=== PATIENT | female | born 1980 | race Caucasian/White ===

== ENCOUNTER 2022-10-13 13:45 | Outpatient (CLI) | payer OTHER, SELFPAY ==
--- NOTE | 2022-10-13 14:00 | CRLHL7_ITS ---
For Patients: As a result of the Century Cures Act, medical imaging exams and procedure reports are released immediately into your electronic medical record. You may view this report before your referring provider. If you have questions, please contact your health care provider. BILATERAL SCREENING MAMMOGRAM WITH COMPUTER-AIDED DETECTION AND TOMOSYNTHESIS TECHNIQUE: CC and MLO views were obtained. These mammographic images have been obtained using full-field digital technique. These mammographic images were interpreted with the benefit of computer-aided detection. Breast Tomosynthesis was used in this interpretation. COMPARISON FILM: Baseline. FINDINGS: The breasts are heterogeneously dense, which may obscure small masses IMPRESSION: There is no radiographic evidence for malignancy. ASSESSMENT: BI-RADS Category 1: Negative RECOMMENDATION: Routine screening mammogram in 1 year. A lay language report of this examination will be provided to the patient. José Lyon M.D. Diagnostic Radiologist [email or web address] JAVID/Dictated by: José Lyon MD @ 10/14/2022 11:14:00 AM (Electronically Signed)
== END 2022-10-13 13:46 | disposition home or self-care (01) ==
LOC: MAMMO 13:53
PROVIDERS: PCP Advanced Practice Midwife; Visit Provider Advanced Practice Midwife
DX: Z12.31 Encounter for screening mammogram for malignant neoplasm of breast (principal); R92.2 Inconclusive mammogram
CPT/HCPCS: 77063; 77067

== ENCOUNTER 2023-08-14 11:40 | Outpatient (CLI) | payer OTHER, SELFPAY | END 2023-08-14 11:41 | disposition home or self-care (01) | LOC: NFLDREF 08-18 05:44 | PROVIDERS: PCP Advanced Practice Midwife; Referring Provider Advanced Practice Midwife; Visit Provider Registered Nurse | DX: N92.0 Excessive and frequent menstruation with regular cycle (principal) | CPT/HCPCS: 84443 ==

== ENCOUNTER 2023-08-22 15:48 | Outpatient (CLI) | payer OTHER, SELFPAY ==
--- NOTE | 2023-08-22 16:00 | CRLHL7_ITS ---
For Patients: As a result of the Century Cures Act, medical imaging exams and procedure reports are released immediately into your electronic medical record. You may view this report before your referring provider. If you have questions, please contact your health care provider. INDICATION: Excessive and frequent menstruation COMPARISON: none TECHNIQUE: 2D campbell scale and color Doppler images were acquired of the pelvis using a transabdominal and transvaginal approach. FINDINGS: Sonographic images demonstrate a normal size and smooth outer contour of the uterus. Uterus measures 7.9 cm in length by 4.0 cm in AP diameter by 5.7 cm in transverse dimension. The myometrium has a normal uniform echotexture. The endometrial lining appears thickened and heterogeneous and measures 18 mm in composite thickness. The right ovary measures 2.9 x 2.1 x 2.0 cm in size and the left ovary measures 3.8 x 1.6 x 1.4 cm. The ovaries demonstrate normal arterial and venous blood flow on color Doppler analysis. There are no suspicious fluid collections within the cul-de-sac. Hypoechoic right ovarian cyst is noted measuring 1.9 cm. Increased vascularity noted within the pelvis bilaterally. IMPRESSION: Heterogeneously thickened endometrium measuring 18 millimeters. No endometrial fluid or uterine fibroid. Bilateral pelvic congestion may be present. Dictated by José Lyon MD @ 08/23/2023 9:46:32 AM (Electronically Signed)
== END 2023-08-22 15:49 | disposition home or self-care (01) ==
LOC: US 15:48
PROVIDERS: PCP Advanced Practice Midwife; Visit Provider Registered Nurse
DX: N92.0 Excessive and frequent menstruation with regular cycle (principal); R93.89 Abnormal findings on diagnostic imaging of other specified body structures
CPT/HCPCS: 76830; 76856

== ENCOUNTER 2023-11-20 14:32 | Outpatient (CLI) | payer OTHER, SELFPAY ==
--- NOTE | 2023-11-20 14:40 | CRLHL7_ITS ---
For Patients: As a result of the Century Cures Act, medical imaging exams and procedure reports are released immediately into your electronic medical record. You may view this report before your referring provider. If you have questions, please contact your health care provider. BILATERAL SCREENING MAMMOGRAM WITH COMPUTER-AIDED DETECTION AND TOMOSYNTHESIS TECHNIQUE: CC and MLO views were obtained. These mammographic images have been obtained using full-field digital technique. These mammographic images were interpreted with the benefit of computer-aided detection. Breast Tomosynthesis was used in this interpretation. COMPARISON FILM: 10/13/22. FINDINGS: The breasts are heterogeneously dense, which may obscure small masses IMPRESSION: There is no radiographic evidence for malignancy. ASSESSMENT: BI-RADS Category 1: Negative RECOMMENDATION: Routine screening mammogram in 1 year. A lay language report of this examination will be provided to the patient. José Lyon M.D. Diagnostic Radiologist [email or web address] JAVID/Dictated by: José Lyon MD @ 11/21/2023 9:22:00 AM (Electronically Signed)
== END 2023-11-20 14:33 | disposition home or self-care (01) ==
LOC: MAMMO 14:32
PROVIDERS: PCP Advanced Practice Midwife; Visit Provider Registered Nurse
DX: Z12.31 Encounter for screening mammogram for malignant neoplasm of breast (principal); R92.2 Inconclusive mammogram
CPT/HCPCS: 77063; 77067

== ENCOUNTER 2024-12-18 10:39 | Outpatient (CLI) | payer OTHER, SELFPAY | END 2024-12-18 10:40 | disposition home or self-care (01) | LOC: NFLDREF 15:18 | PROVIDERS: PCP Advanced Practice Midwife; Referring Provider Advanced Practice Midwife; Visit Provider Registered Nurse | DX: N39.0 Urinary tract infection, site not specified (principal) | CPT/HCPCS: 87086 ==

== ENCOUNTER 2025-04-08 08:53 | Outpatient (CLI) | payer OTHER, SELFPAY ==
--- OUTSIDE RECORDS SUMMARY | 2025-04-08 09:03 | XMS_ITS | Clinical Summary ---
Author Organization [facility] Address [address] [place] [id number] Care Team Providers Care Radar Mechanic Name Role Phone Pcp, No Primary Care Provider Unavailabl e Allergies Active Allergy Reactions Criticality Noted Date Comments Sulfa (Sulfonamide Antibiotics) Hives 10/16 Medications albuterol HFA (PRO-AIR; VENTOLIN; PROVENTIL) 90 mcg/actuation inhalerIndicati ons:SOB (shortness of breath),Acute cough Inhale 1-2 Puffs by mouth every 4 hours if needed for Shortness Of Breath or Wheezing. 1 Each 5 Active benzonatate (TESSALON) 200 mg capsuleIndicati ons:Acute cough Take 1 Capsule (200 mg) by mouth 3 times daily if needed for Cough. 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 Gender Identity Not on file Sexual Orientation Not on file Obstetrics History Last Filed Vital Signs Vital Sign Reading Time Taken Comments Blood Pressure 115/57 11/01/2024 12:02 PM ENGINE WIPER Pulse 91 11/01/2024 1:56 PM ENGINE WIPER Temperature 37.2 C (99 F) 11/01/2024 12:02 PM ENGINE WIPER Respiratory Rate 16 11/01/2024 1:56 PM ENGINE WIPER Oxygen Saturation 100% 11/01/2024 1:56 PM ENGINE WIPER Inhaled Oxygen Concentration - - Weight 53.5 kg (118 lb) 11/01/2024 12:02 PM ENGINE WIPER Height - - Body Mass Index - - Plan of Treatment Health Maintenance Due Date Last Done Comments Tdap 1991 Depression screening for age 12+ 1992 HIV for age 15-65 1995 BMI (ht and wt on same day) for age 18+ 1998 Hepatitis C screening for ag e 18-79 1998 Hepatitis B series for 19+ ( 1 of 3 - 19+ 3-dose series) 1999 Tetanus booster 2000 Pap test for age 21-65 2001 COVID-19 vaccine series (2023- season) 2024 03/04/2022 Influenza Vaccine (Season Ended) 2025 Pneumococcal series for age 6-49 Aged Out No longer eligible based on patient's age to complete this topic Insurance [facility] Care Teams Radar Mechanic Relationship Specialty Start Date End Date Pcp, No . PCP - General 10/06/21
--- NOTE | 2025-04-08 09:15 | CRLHL7_ITS ---
For Patients: As a result of the Cures Act, medical imaging exams and procedure reports are released immediately into your electronic medical record. You may view this report before your referring provider. If you have questions, please contact your health care provider. COMPARISON: 11/20/2023, 10/13/2022 TECHNIQUE: Digital mammogram in CC and MLO projections including computer-aided detection (CAD) and tomosynthesis. BREAST COMPOSITION: The breasts are heterogeneously dense, which may obscure small masses. FINDINGS: No suspicious findings. ASSESSMENT: BI-RADS 1 Negative RECOMMENDATION: Annual screening mammogram. A lay language report of this examination will be provided to the patient. Dictated by: José Lyon MD @ 04/08/2025 12:35:06 (Electronically Signed)
--- OUTSIDE RECORDS SUMMARY | 2025-04-09 00:50 | XMS_ITS | Clinical Summary ---
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 Gender Identity Not on file Sexual Orientation Not on file Obstetrics History Last Filed Vital Signs Vital Sign Reading Time Taken Comments Blood Pressure 115/57 11/01/2024 12:02 PM TEMPLATE LAYOUT WORKER Pulse 91 11/01/2024 1:56 PM TEMPLATE LAYOUT WORKER Temperature 37.2 C (99 F) 11/01/2024 12:02 PM TEMPLATE LAYOUT WORKER Respiratory Rate 16 11/01/2024 1:56 PM TEMPLATE LAYOUT WORKER Oxygen Saturation 100% 11/01/2024 1:56 PM TEMPLATE LAYOUT WORKER Inhaled Oxygen Concentration - - Weight 53.5 kg (118 lb) 11/01/2024 12:02 PM TEMPLATE LAYOUT WORKER Height - - Body Mass Index - [...] patient's age to complete this topic Insurance [facility] Care Teams Multimedia Producer Relationship Specialty Start Date End Date Pcp, No . PCP - General 10/06/21
== END 2025-04-08 08:54 | disposition home or self-care (01) ==
LOC: MAMMO 08:53
PROVIDERS: PCP Advanced Practice Midwife; Visit Provider Advanced Practice Midwife
DX: Z12.31 Encounter for screening mammogram for malignant neoplasm of breast (principal); R92.333 Mammographic heterogeneous density, bilateral breasts
CPT/HCPCS: 77063; 77067